=== PATIENT | male | born 1980 | race Caucasian/White ===

== ENCOUNTER 2018-08-16 06:29 | Emergency (ER) | payer OTHER ==
[~2018-08-16] VITALS: Ht 185.4 cm; Wt 90.7 kg
[2018-08-16] MEDS ORDERED: LISINOPRIL5 MG PO (06:42)
[2018-08-16] MEDS ORDERED: CLONIDINE HCL0.1 MG (06:42)
[2018-08-16] MEDS ORDERED: NORVASC5 MG PO (06:42)
--- OUTSIDE RECORDS SUMMARY | 2018-08-16 07:18 | XMS ---
PreManage Notification: EMANUEL REYNA [employer] Picker Events No recent Security Events currently on file CRITERIA MET - [facility] - 3 Facilities in 90 Days - [facility] - 2 Visits in 30 Days CARE PROVIDERS VARINDER JACK [facility] Current PHONE: [phone] FRANC MCMILLAN [facility] PHONE: Unknown FRANC BRAY [facility] PHONE: Unknown PORTIA Contreras [facility] Current PHONE: Unknown [facility] PHONE: Unknown Stacia has no Care Guidelines for this patient. E.D. VISIT COUNT (12 MO.) 1 [facility]. 1 [facility] 1 [facility] [address] [facility] 1 OZZIE Kelley TOTAL 5 NOTE: Visits indicate total known visits. ED/UCC VISIT TRACKING (12 MO.) 08/16/2018 06:30 OZZIE Esparza TYPE: Emergency COMPLAINT: - R ARM SWELLING/INFECTION 08/13/2018 08:28 [facility] TYPE: Emergency DIAGNOSES: - Med Eval - Cellulitis of right upper limb - Abscess 08/08/2018 22:30 Franc [facility] TYPE: Emergency DIAGNOSES: - Strain of muscle and tendon of front wall of thorax, initial encounter - Finger Infection - Cellulitis of left finger [facility] DIAGNOSES: - Cervicalgia - Other chronic pain - Encounter for issue of repeat prescription - Medication Refill - Neck Pain 12/05/2017 21:20 [facility] MANJU [place] TYPE: Emergency DIAGNOSES: - pleursy - Essential (primary) hypertension - Pleurisy INPATIENT VISIT TRACKING (12 MO.) No inpatient visits to display in this time frame [email or web address]
== END 2018-08-16 07:14 | disposition home or self-care (01) ==
LOC: ED 06:29
DX: L03.113 Cellulitis of right upper limb (principal); I10 Essential (primary) hypertension; F17.200 Nicotine dependence, unspecified, uncomplicated
CPT/HCPCS: 96372; 99283-25; J0696